=== PATIENT | male | born 1995 | race Two or more races ===

== ENCOUNTER 2019-09-13 10:33 | Emergency (ER) | payer BC ==
[~2019-09-13] VITALS: Ht 177.8 cm; Wt 72.6 kg
--- NOTE | 2019-09-13 10:50 | NUR ---
ED Nurse Note: pt ambulated to ed c/o posterior head pain s/p fall on head after "being blocked during basketball game last night". no bump, lesions, abrasion or redness noted. pt denies KO.
[2019-09-13 10:51] VITALS: BP 129/86
[2019-09-13] MEDS ORDERED: IBUPROFEN600 MG ORAL (10:57)
[2019-09-13] MEDS ORDERED: ROBAXIN-750750 MG PO (10:57)
[2019-09-13] MEDS ORDERED: Methocarbamol 500mg tab ORAL ONE (11:00)
--- NOTE | 2019-09-13 11:05 | Emergency Room Report ---
History of Present Illness General Chief Complaint: Head Injury Source: Patient Present Illness HPI Patient is a 24-year-old male denies any significant past medical history who presents to the ER complaining of neck pain. Patient states that he was playing basketball yesterday hit the back of his head yesterday and woke up this morning with bilateral neck stiffness. He denies any dizziness, blurry vision, nausea or vomiting. He denies any focal weakness. He denies any current headache. He denies any chest pain or shortness of breath. Allergies: Coded Allergies: No Known Allergies (Unverified , 09/13/19) Patient History Past Medical History: none Past Surgical History: none Social History: Denies: smoking, alcohol use, drug use Nursing Documentation-[facility] Past Medical History: No Stated History Review of Systems All Other Systems: negative except mentioned in HPI Physical Exam Vital Signs Date Time Temp Pulse Resp B/P (MAP) Pulse Ox O2 Delivery O2 Flow Rate FiO2 09/13/19 10:42 98.1 77 18 129/86 (100) 99 Room Air Sp02 EP Interpretation: reviewed, normal General Appearance: no apparent distress, alert, GCS 15, non-toxic Head: normocephalic, atraumatic Eyes: bilateral eye normal inspection, bilateral eye PERRL ENT: hearing grossly normal, normal pharynx, no angioedema, normal voice Neck: full range of motion, supple/symm/no masses, other - Bilateral lateral cervical spine tenderness no midline tenderness no step-offs Respiratory: chest non-tender, lungs clear, normal breath sounds, speaking full sentences Cardiovascular #1: regular rate, rhythm, no edema Gastrointestinal: normal bowel sounds, non tender, soft, non-distended, no guarding, no rebound Rectal: deferred Genitourinary: normal inspection, no CVA tenderness Musculoskeletal: back normal, normal range of motion, calf tenderness, gait/ station normal, non-tender Neurologic: alert, motor strength/tone normal, oriented x3, sensory intact, responsive, speech normal Psychiatric: judgement/insight normal, memory normal, mood/affect normal, no suicidal/homicidal ideation Skin: normal color Lymphatic: no adenopathy Medical Decision Making Diagnostic Impression: Primary Impression: Neck sprain Additional Impression: Head trauma ER Course Patient has no headache. Has no midline neck tenderness. Given Motrin and Robaxin. After discussing risks and benefits of further diagnostics, treatment plans, as well as indications for and risks of admission, the patient is agreeable to being discharged home. I have explained that their evaluation and treatment in the emergency department today is an important step towards them achieving better health but that their evaluation today is not intended to replace further evaluation and treatment by a physician in their local clinic. I have explained that while the current findings suggest no immediate life threatening emergency they will require further evaluation and treatment by a physician of their choice in their area. They understand that it will be necessary for them to review the final reports of their ED visit with their clinic physician. We have reviewed indications for return to the Emergency Department. I have explained that additional time may need to pass and/or additional testing as an outpatient may be necessary before a definitive diagnosis can be made. They tell me they are willing to follow up as instructed within the timeframe I recommend. They appear to understand what we discussed. Additionally they understand that if they are unable to be seen by an outpatient physician they are welcome, and in fact should, return to the Emergency Department for a repeat evaluation. The patient is stable at time of discharge. Last Vital Signs Date Time Temp Pulse Resp B/P (MAP) Pulse Ox O2 Delivery O2 Flow Rate FiO2 09/13/19 10:51 98.1 76 18 129/86 99 Room Air Disposition: HOME, SELF-CARE Condition: Stable Scripts Methocarbamol* (ROBAXIN-750*) 750 Mg Tablet 750 MG PO TID, #21 TAB 0 Refills Prov: Opal Morgan M.D. 09/13/19 Ibuprofen* (MOTRIN*) 600 Mg Tablet 600 MG ORAL Q8H PRN for For Pain, #30 TAB 0 Refills Prov: Opal Morgan M.D. 09/13/19 Referrals: [facility] Patient Instructions: Head Injury, Adult, Cervical Sprain, [id number] Opal Morgan M.D. Sep 13, 2019 11:05
[2019-09-13 11:10] VITALS: BP 125/82
--- NOTE | 2019-09-13 11:10 | NUR ---
ER DISCHARGE NOTE: Patient is cleared to be discharged per ERMD, pt is aox4, on room air, with stable vital signs. pt was given dc and prescription instructions, pt was able to verbalize understanding, pt id band removed. pt is able to ambulate with steady gait. pt took all belongings.
== END 2019-09-13 11:15 | disposition home or self-care (01) ==
LOC: EMR 11:05
DX: S09.90XA Unspecified injury of head, initial encounter (principal); S13.9XXA Sprain of joints and ligaments of unspecified parts of neck, initial encounter; W22.8XXA Striking against or struck by other objects, initial encounter; Y93.67 Activity, basketball; Y92.9 Unspecified place or not applicable
CPT/HCPCS: 99282